=== PATIENT | female | born 1995 | race Hispanic/Latino ===

== ENCOUNTER 2018-10-29 10:56 | Emergency (ER) | payer MEDICAID ==
[~2018-10-29] VITALS: Ht 172.7 cm; Wt 81.7 kg
[~2018-10-29 10:56] MED LIST: CEPHALEXIN500 MG PO; NORCO 5-325 TA1 EACH PO
[2018-10-29] MEDS ORDERED: BIRTH CONTROL (11:13)
[2018-10-29] MEDS ORDERED: ONDANSETRON ODT8 MG PO (13:48)
== END 2018-10-29 14:00 | disposition home or self-care (01) ==
LOC: ED 10:56
DX: K29.00 Acute gastritis without bleeding (principal); F17.200 Nicotine dependence, unspecified, uncomplicated; Z91.018 Allergy to other foods
CPT/HCPCS: 80053; 81001; 83690; 84703; 85025; 96361; 96374; 96375; 99284-25; 99406; J2060; J2405; J7030